=== PATIENT | male | born 1975 | race Caucasian/White ===

== ENCOUNTER 2021-03-17 21:04 | Emergency (ER) | payer OTHER ==
[~2021-03-17] VITALS: Ht 177.8 cm; Wt 77.1 kg
[2021-03-17] MEDS ORDERED: XANAX 0.25 MG0.25 MG PO (21:15)
[2021-03-17] MEDS ORDERED: ADDERALL XR 3030 MG PO (21:15)
[2021-03-17] MEDS ORDERED: AMBIEN 10 MG TA10 MG PO (21:16)
[2021-03-18] MEDS ORDERED: FLEXERIL PO (00:37)
[2021-03-18] MEDS ORDERED: HYDROCODON-ACE1 EAC8 PO (00:37)
[2021-03-18 00:45] VITALS: BP 142/80
== END 2021-03-18 00:49 | disposition home or self-care (01) ==
LOC: M.ERS 21:04
DX: S43.022A Posterior subluxation of left humerus, initial encounter (principal); F17.210 Nicotine dependence, cigarettes, uncomplicated; Z90.49 Acquired absence of other specified parts of digestive tract; X50.9XXA Other and unspecified overexertion or strenuous movements or postures, initial encounter; Y93.89 Activity, other specified; Y92.89 Other specified places as the place of occurrence of the external cause; Y99.8 Other external cause status